=== PATIENT | female | born 1985 | race Two or more races ===

== ENCOUNTER 2020-06-24 18:41 | Emergency (ER) | payer OTHER ==
[~2020-06-24] VITALS: Ht 162.6 cm; Wt 70.0 kg
--- NOTE | 2020-06-24 20:07 | PHYS DOC ---
Past Medical History Past Medical History: No Pertinent History Additional Past Medical Histor: ENDOMETRIOSIS Past Surgical History: No Surgical History Smoking Status: Never Smoker Alcohol Use: Occasionally General Adult EDM: Chief Complaint: ABDOMINAL PAIN HPI: HPI: Patient is a 34 year old female no significant medical history who presents to the ED today complaining of a waxing and waning 10 out of 10 right-sided abdominal pain, symptoms began this morning. Patient states moving around makes the symptoms worse. Reports nausea but no vomiting, denies any diarrhea. Denies any chance she is constipated. States she was seen at an urgent care and was sent to the ED for appendicitis rule out. Review of Systems: Review of Systems: Constitutional: Denies fever or chills. [] Eyes: Denies change in visual acuity. [] HENT: Denies nasal congestion or sore throat. [] Respiratory: Denies cough or shortness of breath. [] Cardiovascular: Denies chest pain or edema. [] GI: Reports right lower quadrant abdominal pain, denies nausea, vomiting, bloody stools or diarrhea. [] : Denies dysuria. [] Musculoskeletal: Denies back pain or joint pain. [] Integument: Denies rash. [] Neurologic: Denies headache, focal weakness or sensory changes. [] Psychiatric: Denies depression or anxiety. [] Heart Score: Risk Factors: Risk Factors: DM, Current or recent (<one month) smoker, HTN, HLP, family his tory of CAD, obesity. Risk Scores: Score 0 - 3: 2.5% MACE over next 6 weeks - Discharge Home Score 4 - 6: 20.3% MACE over next 6 weeks - Admit for Clinical Observation Score 7 - 10: 72.7% MACE over next 6 weeks - Early Invasive Strategies Current Medications: Current Medications Medications (Trade) Dose Ordered Sig/Bella Start Time Stop Time Status Last Admin Dose Admin Famotidine (Pepcid Vial) 20 mg 1X ONCE 06/24/20 20:00 06/24/20 20:01 UNV Morphine Sulfate (Morphine Sulfate) 5 mg 1X ONCE 06/24/20 20:00 06/24/20 20:01 UNV Ondansetron HCl (Zofran) 4 mg 1X ONCE 06/24/20 20:00 06/24/20 20:01 UNV Sodium Chloride 1,000 ml @ 1,000 mls/hr 1X ONCE 06/24/20 20:00 06/24/20 20:59 UNV Physical Exam: PE: Constitutional: Well developed, well nourished, no acute distress, non-toxic appearance. [] HENT: Normocephalic, atraumatic, bilateral external ears normal, oropharynx moist, no oral exudates, nose normal. [] Eyes: PERRLA, EOMI, conjunctiva normal, no discharge. [] Neck: Normal range of motion, no tenderness, supple, no stridor. [] Cardiovascular:Heart rate regular rhythm, no murmur [] Lungs & Thorax: Bilateral breath sounds clear to auscultation [] Abdomen: Bowel sounds normal, soft, tenderness on palpation of epigastric region and periumbilical region, no point tenderness to the right lower quadrant, negative Camacho sign, negative psoas sign, negative obturator sign, no guarding, no rebound pain no tenderness, no masses, no pulsatile masses. [] Skin: Warm, dry, no erythema, no rash. [] Back: No tenderness, no CVA tenderness. [] Extremities: No tenderness, no cyanosis, no clubbing, ROM intact, no edema. [] Neurologic: Alert and oriented X 3, normal motor function, normal sensory function, no focal deficits noted. [] Psychologic: Affect normal, judgement normal, mood normal. [] Current Patient Data: Vital Signs: Vital Signs Date Time Temp Pulse Resp B/P (MAP) Pulse Ox O2 Delivery O2 Flow Rate FiO2 06/24/20 19:10 99.1 65 20 118/63 (81) 98 Room Air 99.1 EKG: EKG: [] Radiology/Procedures: Radiology/Procedures: []PROCEDURE: CT ABD PELV W/ IV CONTRST ONLY CT SCAN OF THE ABDOMEN AND PELVIS WITH IV CONTRAST. History: Reason: abd pain RLQ / Spl. Instructions: [id number] 75ML / History: Comparison:None. Procedure: Contiguous axial images of the abdomen and pelvis were performed after the administration of 75 cc of Isovue 370 IV contrast. Oral contrast: No. Findings: The appendix measures 8 mm in diameter and appears normal and no surrounding inflammation. The uterus and ovaries appear within normal limits. The left colon is collapsed limiting its evaluation. Liver: Unremarkable Spleen: Unremarkable Pancreas: Unremarkable Adrenal Glands: Unremarkable Kidneys: Unremarkable There is no mass or lymphadenopathy. There is no free air. There is no free fluid. The urinary bladder appears normal. Impression: No acute findings. PQRS Compliance Statement: One or more of the following individualized dose reduction techniques were utilized for this examination: 1. Automated exposure control 2. Adjustment of the mA and/or kV according to patient size 3. Use of iterative reconstruction technique Electronically signed by: Cathy Copeland III, MD (06/24/2020 9:28 PM) [facility] DICTATED and SIGNED BY: CATHY COPELAND III, MD DATE: 06/24/[id number] 0 Course & Med Decision Making: Course & Med Decision Making Pertinent Labs and Imaging studies reviewed. (See chart for details) This is a 34-year-old female patient presented to the ED today epigastric and chang-umbilical abdominal pain symptoms began today. Also complaining of nausea. Was sent from urgent care for appendicitis rule out. Urine analysis positive for infection, CBC with a WBC of 18.3, CMP with no acute findings. CT of the abdomen and pelvic was negative for any acute findings. Was given Rocephin in the ED, IV fluid and pain medicine. Also given nausea medicine. Symptoms are under control. Discharge to home with Cipro. Instructed to push fluids. Follow-up with primary care doctor in 1 to 2 weeks. Aquiles Disclaimer: Aquiles Disclaimer: This electronic medical record was generated, in whole or in part, using a voice recognition dictation system. Departure Departure Impression: Primary Impression: Acute cystitis Qualified Codes: N30.00 - Acute cystitis without hematuria Disposition: 01 [place] HOME SELF CARE/HOMELESS Condition: STABLE Referrals: VANESA MILLAN MD (PCP) follow up next week Patient Instructions: Urinary Tract Infection Additional Instructions: You were evaluated in the emergency room for abdominal pain. You were noted to have bladder infection. We put you on antibiotics, ensure you take them to completion. Push fluids. Follow-up with your doctor next week. Come back to [facility] ED at any point symptoms worsen Scripts Tramadol Hcl (TRAMADOL HCL) 50 Mg Tablet 50 MG PO Q6HRS PRN for PAIN, #14 TAB Prov: MUTUNGA,JAYA LARRIMAN 06/24/20 Ondansetron (ONDANSETRON ODT) 4 Mg Tab.rapdis 1 TAB PO PRN Q6-8HRS, #16 TAB Prov: MUTUNGA,JAYA LARRIMAN 06/24/20 Ciprofloxacin Hcl (CIPRO) 500 Mg Tablet 1 TAB PO BID for 7 Days, #14 TAB 0 Refills Prov: JAYA ADAMSON APRN 06/24/20 JAYA ADAMSON APRN Jun 24, 2020 20:07
[2020-06-24 20:11] LABS: BASO # 0.1 x10^3/uL (0.0-0.2); BASO % 0 % (0-3); EOS % 0 % (0-3); HEMATOCRIT 34.6 % (36.0-47.0); HEMOGLOBIN 11.9 g/dL (12.0-15.5); LYMPH # 0.7 x10^3/uL (1.0-4.8); LYMPH % 4 % (24-48); MEAN CORPUSCULAR HEMOGLOBIN 31 pg (25-35); MEAN CORPUSCULAR HGB CONC 34 g/dL (31-37); MEAN CORPUSCULAR VOLUME 89 fL (79-100); MONO # 0.5 x10^3/uL (0.0-1.1); MONO % 3 % (0-9); NEUT # 17.4 x10^3/uL (1.8-7.7); NEUT % 93 % (31-73); PLATELET COUNT 336 x10^3/uL (140-400); RED BLOOD COUNT 3.88 x10^6/uL (3.50-5.40); RED CELL DISTRIBUTION WIDTH 13.2 % (11.5-14.5); WHITE BLOOD COUNT 18.7 x10^3/uL (4.0-11.0)
[2020-06-24 20:19] LABS: CALCIUM 8.8 mg/dL (8.5-10.1); CREATININE 0.6 mg/dL (0.6-1.0); GFR 114.4; POTASSIUM 3.4 mmol/L (3.5-5.1)
[2020-06-24 20:24] LABS: ALBUMIN 3.5 g/dL (3.4-5.0); ALBUMIN/GLOBULIN RATIO 0.9 (1.0-1.7); MAGNESIUM 1.7 mg/dL (1.8-2.4); TOTAL BILIRUBIN 0.4 mg/dL (0.2-1.0); TOTAL PROTEIN 7.5 g/dL (6.4-8.2)
[2020-06-24 20:28] LABS: BILIRUBIN,URINE NEGATIVE (NEG); CLARITY,URINE CLEAR; COLOR,URINE YELLOW; NITRITE,URINE NEGATIVE (NEG); PROTEIN,URINE NEGATIVE (NEG-TRACE); UROBILINOGEN,URINE 0.2 mg/dL (0.2 mg/dL)
[2020-06-24] MEDS ORDERED: ONDANSETRON PF 4 MG/2 ML VIAL. IVP ONE (20:30)
[2020-06-24] MEDS ORDERED: MORPHINE SULFATE 10 MG/ML VIAL. IV ONE (20:30)
[2020-06-24] MEDS ORDERED: FAMOTIDINE 20 MG/2 ML VIAL IVP ONE (20:30)
[2020-06-24] MEDS ORDERED: IV NORMAL SALINE 1000ML BAG 1,000 ML IV ONE (20:30)
[2020-06-24 20:36] LABS: AMPHETAMINE/METHAMPHETAMINE NEG (NEG); BARBITURATES NEG (NEG); BENZODIAZEPINES NEG (NEG); CANNABINOIDS NEG (NEG); COCAINE NEG (NEG); METHADONE NEG (NEG); OPIATES NEG (NEG); PHENCYCLIDINE NEG (NEG)
[2020-06-24 21:00] LABS: BACTERIA,URINE FEW /HPF (0-FEW); RBC,URINE 0 /HPF (0-2); WBC,URINE OCC /HPF (0-4)
[2020-06-24] MEDS ORDERED: CONTRAST GIVEN. MC PRN (21:00)
[2020-06-24] MEDS ORDERED: IOHEXOL 300 MG/ML 100ML VIAL. IV ONE (21:00)
[2020-06-24 21:05] LABS: % BANDS 6 % (0-9); % BASOS 1 % (0-3); % LYMPHS 11 % (24-48); % MONOS 1 % (0-10); % SEGS 81 % (35-66); PLT ESTIMATE ADEQUATE (ADEQUATE); TOXIC VACUOLATION SLIGHT
--- NOTE | 2020-06-24 21:31 | RAD ---
CT SCAN OF THE ABDOMEN AND PELVIS WITH IV CONTRAST. History: Reason: abd pain RLQ / Spl. Instructions: [id number] 75ML / History: Comparison:None. Procedure: Contiguous axial images of the abdomen and pelvis were performed after the administration of 75 cc of Isovue 370 IV contrast. Oral contrast: No. Findings: The appendix measures 8 mm in diameter and appears normal and no surrounding inflammation. The uterus and ovaries appear within normal limits. The left colon is collapsed limiting its evaluation. Liver: Unremarkable Spleen: Unremarkable Pancreas: Unremarkable Adrenal Glands: Unremarkable Kidneys: Unremarkable There is no mass or lymphadenopathy. There is no free air. There is no free fluid. The urinary bladder appears normal. Impression: No acute findings. PQRS Compliance Statement: One or more of the following individualized dose reduction techniques were utilized for this examination: 1. Automated exposure control 2. Adjustment of the mA and/or kV according to patient size 3. Use of iterative reconstruction technique Electronically signed by: Jake Quiroz III, MD (06/24/2020 9:28 PM) [facility]
[2020-06-24] MEDS ORDERED: cefTRIAXone IV Push 1 GM VIAL. IVP ONE (22:00)
[2020-06-24] MEDS ORDERED: ONDA4TAB12 PO (22:02)
[2020-06-24] MEDS ORDERED: TRAM50TA PO (22:02)
[2020-06-24] MEDS ORDERED: CIPR500T94 PO (22:02)
[2020-06-24 23:09] VITALS: BP 98/56
== END 2020-06-24 23:14 | disposition home or self-care (01) ==
LOC: ER 18:41
DX: N30.00 Acute cystitis without hematuria (principal)
CPT/HCPCS: 36415; 74177; 80053; 80307; 81001; 83690; 83735; 85007; 85025; 87086; 96361; 96374; 96375; 99285; G0480; J0696; J2270; J2405; J3490; J7030; Q9967